=== PATIENT | female | born 1950 | race Caucasian/White ===

== ENCOUNTER 2017-11-24 08:30 | Day surgery (SDC) | payer MEDICARE, BC ==
[2017-11-24] MEDS: NS 1,000 ML IV (09:01)
[2017-11-24] MEDS ORDERED: ePHEDrine INJ 50 MG/ML VIAL As Ordered (10:05)
[2017-11-24] MEDS ORDERED: PROPOFOL 200 MG/20 ML VIAL As Ordered ×2 (10:22→10:55)
[2017-11-24] MEDS ORDERED: LIDOCAINE 2% INJ 100 MG/5 ML SDV (FOR ANES.) As Ordered (10:22)
== END 2017-11-24 11:40 | disposition home or self-care (01) ==
LOC: M OPP 08:30
DX: Z12.11 Encounter for screening for malignant neoplasm of colon (principal); K62.1 Rectal polyp; K64.9 Unspecified hemorrhoids; D12.0 Benign neoplasm of cecum; D12.7 Benign neoplasm of rectosigmoid junction; K63.89 Other specified diseases of intestine; K59.04 Chronic idiopathic constipation; K21.9 Gastro-esophageal reflux disease without esophagitis; Z79.899 Other long term (current) drug therapy; Z86.010 Personal history of colon polyps; Z87.891 Personal history of nicotine dependence; Z78.0 Asymptomatic menopausal state; Z80.3 Family history of malignant neoplasm of breast; Z80.0 Family history of malignant neoplasm of digestive organs; Z98.84 Bariatric surgery status; Z80.6 Family history of leukemia; Z87.42 Personal history of other diseases of the female genital tract
CPT/HCPCS: 45380

== ENCOUNTER 2023-06-02 08:53 | Day surgery (SDC) | payer MEDICARE, BC ==
[~2023-06-02] VITALS: Ht 165.1 cm; Wt 75.5 kg
[~2023-06-02 08:53] MED LIST: B-12100010 PO; CALCTAB54 PO; CURC500C PO; LEVO25TA5 PO; LIDOCAINE 2% 100MG/5ML SDV (FOR ANES.) As Ordered ONE; LORA-1041 PO; LORA10CA PO; META0.52 PO; MIRA3350 PO; MULT1TAB10 PO; NS 1,000 ML IV ONE; OMEP40CA4 PO; VITA250L PO; VITMTA PO; propofoL 200 MG/20 ML VIAL As Ordered ONE
[2023-06-02] MEDS ORDERED: propofoL 200 MG/20 ML VIAL As Ordered ONE (10:10)
[2023-06-02 10:16] VITALS: TEMP 96.9
[2023-06-02 10:37] VITALS: BP 113/58; O2SAT 99
== END 2023-06-02 11:20 | disposition home or self-care (01) ==
LOC: M OPP 08:53
PROVIDERS: ATTEND Surgery
DX: Z12.11 Encounter for screening for malignant neoplasm of colon (principal); Z86.010 Personal history of colon polyps; Z80.0 Family history of malignant neoplasm of digestive organs; D12.3 Benign neoplasm of transverse colon; Z87.891 Personal history of nicotine dependence; Z79.890 Hormone replacement therapy; Z79.899 Other long term (current) drug therapy